=== PATIENT | female | born 1990 | race African-American/Black ===

== ENCOUNTER 2017-02-18 08:43 | Emergency (ER) | payer MEDICAID, SELFPAY ==
[2017-02-18] MEDS ORDERED: Lidocaine 1% w/Epinephrine 1:200K 30 ML VIAL ONE (09:29)
[2017-02-18] MEDS ORDERED: HYDROcodone/Acetaminophen 5/325 mg Tablet ONE (09:32)
== END 2017-02-18 10:05 | disposition home or self-care (01) ==
LOC: ERS 08:43
DX: L02.214 Cutaneous abscess of groin (principal); J45.909 Unspecified asthma, uncomplicated
CPT/HCPCS: 10061; 87070; 87205

== ENCOUNTER 2017-02-20 09:30 | Emergency (ER) | payer SELFPAY | END 2017-02-20 10:14 | disposition home or self-care (01) | LOC: ERS 09:30 | DX: Z48.817 Encounter for surgical aftercare following surgery on the skin and subcutaneous tissue (principal); J45.909 Unspecified asthma, uncomplicated; Z79.2 Long term (current) use of antibiotics; Z79.891 Long term (current) use of opiate analgesic | CPT/HCPCS: 99282 ==

== ENCOUNTER 2017-02-22 08:49 | Emergency (ER) | payer SELFPAY | END 2017-02-22 09:43 | disposition home or self-care (01) | LOC: ERS 08:49 | DX: Z48.817 Encounter for surgical aftercare following surgery on the skin and subcutaneous tissue (principal); Z48.01 Encounter for change or removal of surgical wound dressing; J45.909 Unspecified asthma, uncomplicated | CPT/HCPCS: 99282 ==

== ENCOUNTER 2017-02-24 08:33 | Emergency (ER) | payer SELFPAY | END 2017-02-24 09:17 | disposition home or self-care (01) | LOC: ERS 08:33 | DX: Z48.817 Encounter for surgical aftercare following surgery on the skin and subcutaneous tissue (principal); J45.909 Unspecified asthma, uncomplicated | CPT/HCPCS: 99282 ==

== ENCOUNTER 2018-02-16 10:16 | Emergency (ER) | payer SELFPAY | END 2018-02-16 10:39 | disposition home or self-care (01) | LOC: ERS 10:16 | DX: T16.2XXA Foreign body in left ear, initial encounter (principal); J45.909 Unspecified asthma, uncomplicated; Z79.899 Other long term (current) drug therapy | CPT/HCPCS: 69200 ==

== ENCOUNTER 2018-08-18 13:09 | Outpatient (CLI) | payer MEDICAID ==
--- NOTE | 2018-08-18 14:05 | ULT ---
FTransabdominal and transvaginal pelvic ultrasound utilizing grayscale, color Doppler and spectral du plex sonographic evaluation. DATE:: 08/18/2018 12:00 AM CLINICAL HISTORY: Menorrhagia. LMP: July 29, 2018 : No reported Postmenopausal since: Not relevant Study: Transabdominal transvaginal pelvic ultrasound Uterus: Orientation: anteverted Size: 8.8 x 4.1 x 6.1 cm Mass: None Cervix: Normal Endometrium: Normal Endometrial Thickness: 15 mm Ovaries: Size: Right ovary measures 2.7 x 4.2 x 3.1 cm. The left ovary measures 3.1 x 3.7 x 2.3 cm. Mass: None . Flow: There is normal vascular flow to the right and left ovary. Adnexa: mass: None Cul-de-sac: Small amount of free fluid IMPRESSION: No acute sonographic abnormality demonstrated. Nonspecific small amount of free fluid in the pelvis.
== END 2018-08-18 13:10 | disposition home or self-care (01) ==
LOC: BICULT 13:09
PROVIDERS: ATTEND Advanced Practice Midwife
DX: N92.0 Excessive and frequent menstruation with regular cycle (principal)
CPT/HCPCS: 76856

== ENCOUNTER 2021-03-21 20:24 | Emergency (ER) | payer MEDICAID ==
[2021-03-21] MEDS ORDERED: Ibuprofen 200 MG TAB ONE (21:26)
== END 2021-03-21 21:35 | disposition home or self-care (01) ==
LOC: ERS 20:24
DX: L72.0 Epidermal cyst (principal); J45.909 Unspecified asthma, uncomplicated
CPT/HCPCS: 99282

== ENCOUNTER 2021-11-11 15:55 | Outpatient (CLI) | payer MEDICAID | END 2021-11-11 15:56 | disposition home or self-care (01) | LOC: BICULT 15:55 | PROVIDERS: ATTEND Nurse Practitioner Women's Health | DX: R10.2 Pelvic and perineal pain (principal); N83.202 Unspecified ovarian cyst, left side; N83.9 Noninflammatory disorder of ovary, fallopian tube and broad ligament, unspecified | CPT/HCPCS: 76856 ==

== ENCOUNTER 2022-02-04 12:47 | Outpatient (CLI) | payer MEDICAID | END 2022-02-04 12:48 | disposition home or self-care (01) | LOC: ULT 12:47 | PROVIDERS: ATTEND Nurse Practitioner Women's Health | DX: Z87.42 Personal history of other diseases of the female genital tract (principal) | CPT/HCPCS: 76856 ==

== ENCOUNTER 2022-03-20 09:10 | Emergency (ER) | payer MEDICAID, SELFPAY | END 2022-03-20 10:47 | disposition home or self-care (01) | LOC: ERS 09:10 | DX: L02.31 Cutaneous abscess of buttock (principal); J45.909 Unspecified asthma, uncomplicated | CPT/HCPCS: 99282 ==

== ENCOUNTER 2022-10-27 11:27 | Emergency (ER) | payer MEDICAID, SELFPAY | END 2022-10-27 13:18 | disposition home or self-care (01) | LOC: ERS 11:27 | DX: S90.32XA Contusion of left foot, initial encounter (principal); W18.30XA Fall on same level, unspecified, initial encounter ==

== ENCOUNTER 2023-07-15 10:22 | Emergency (ER) | payer SELFPAY ==
[2023-07-15] MEDS ORDERED: Ketorolac Tromethamine 30 MG (1 mL) VIAL ONE (10:41)
[2023-07-15] MEDS ORDERED: Ipratropium/Albuterol 3 ML NEB ONE ×2 (10:41→11:32)
[2023-07-15] MEDS ORDERED: Dexamethasone 4 MG TAB ONE (10:56)
[2023-07-15 11:40] LABS: Influenza A by NAA Not Detected (NotDetected); Influenza B by NAA Not Detected (NotDetected); SARS-CoV-2 NAA Rapid Test Not Detected (NotDetected)
== END 2023-07-15 14:18 | disposition home or self-care (01) ==
LOC: ERS 10:22
DX: J15.9 Unspecified bacterial pneumonia (principal); J45.909 Unspecified asthma, uncomplicated; Z79.899 Other long term (current) drug therapy
CPT/HCPCS: 71045; 94640; 96372; J1885; J7620; J8540

== ENCOUNTER 2023-07-16 20:25 | Observation (INO) | payer SELFPAY ==
[2023-07-16] MEDS ORDERED: predniSONE 20 MG TAB ONE (20:55)
[2023-07-16] MEDS ORDERED: Ipratropium/Albuterol 3 ML NEB ONE ×2 (21:05→23:27)
[2023-07-16 21:22] LABS: #Eosinphils 0.1 thou/uL (0.0-0.7); #Monocytes 0.6 thou/uL (0.11-0.59); #Neutrophils 2.8 thou/uL (1.40-6.50); %Basophils 0.4 % (0.0-1.0); %Eosinophils 1.8 % (0.0-10.0); %Lymphocytes 35.1 % (21.0-51.0); %Monocytes 11.5 % (0.0-10.0); Hematocrit 33.5 % (36.0-47.0); Hemoglobin 11.3 g/dL (12.0-16.0); Mean Corpuscular HGB CONC 33.7 g/dL (32.0-36.0); Mean Corpuscular Hemoglobin 30.1 pg (27.0-31.0); Mean Corpuscular Volume 89.3 fl (78.0-98.0); Mean Platelet Volume 10.5 fL (7.4-10.4); Platelet Count 309 10x3/uL (130-400); RBC Distribution Width 13.8 % (11.5-14.5); Red Blood Cell (RBC) Count 3.75 mill/uL (4.20-5.40); White Blood Cell (WBC) Count 5.6 10x3/uL (4.8-10.8)
[2023-07-16 21:39] LABS: ALT (SGPT) 21 U/L (8-55); AST (SGOT) 19 U/L (5-34); Albumin 4.1 g/dL (3.5-5.0); Alkaline Phosphatase 51 U/L (40-110); Anion Gap 13 mmol/L (10-20); BUN (Urea Nitrogen) 10 mg/dL (7.0-18.7); Bilirubin, Total 0.2 mg/dL (0.2-1.2); Calc. Creatinine Clearance 0 mL/min (70-130); Calcium 8.7 mg/dL (7.8-10.44); Carbon Dioxide 22 mmol/L (22-29); Chloride 105 mmol/L (98-107); Estimated GFR 118; Globulin 3.1 g/dL (2.4-3.5); Glucose 94 mg/dL (70-105); Potassium 3.5 mmol/L (3.5-5.1); Protein, Total 7.2 g/dL (6.0-8.3); Sodium 136 mmol/L (136-145)
[2023-07-16 22:38] LABS: BHCG - Serum Negative (NEGATIVE); Pregs Control Background? CLEAR/WHITE (CLR/WHITE); Pregs Control Bar Appear? YES (CONTROL BAR)
[2023-07-16 22:50] LABS: Troponin I Less than 0.010 ng/mL (< 0.028)
[2023-07-16] MEDS ORDERED: Magnesium 2 GM/50 ML BAG (IN WATER) ONE (23:27)
[2023-07-17] MEDS ORDERED: Albuterol 2.5 MG (3 mL) NEB NEB PRN (00:05)
[2023-07-17] MEDS ORDERED: Azithromycin 500 MG VIAL ONE (00:09)
[2023-07-17] MEDS ORDERED: Sodium Chloride 0.9% 250 ML 250 ML ONE (00:09)
[2023-07-17] MEDS ORDERED: cefTRIAXone (ROCEPHIN) 2 GM VIAL ONE (00:09)
[2023-07-17] MEDS ORDERED: Sodium Chloride 0.9% 100 ML ONE (00:09)
[2023-07-17] MEDS ORDERED: Ondansetron PF 4 MG/2 ML Vial IVP PRN (00:15)
[2023-07-17] MEDS ORDERED: Ondansetron ODT 4 MG TAB SL PRN (00:15)
[2023-07-17] MEDS ORDERED: Acetaminophen 650 MG Suppository PR PRN (00:20)
[2023-07-17] MEDS ORDERED: Ipratropium/Albuterol 3 ML NEB NEB PRN (00:28)
[2023-07-17] MEDS: Ipratropium/Albuterol 3 ML NEB NEB SCH (02:06)
[2023-07-17 02:42] VITALS: BMI 41.9
[2023-07-17] MEDS: Acetaminophen 325 MG TAB PO PRN (03:07)
[2023-07-17] MEDS: HYDROcodone/Acetaminophen 10/325 mg Tablet PO PRN (03:41)
[2023-07-17 04:44] LABS: #Monocytes 0.2 thou/uL (0.11-0.59); #Neutrophils 4.3 thou/uL (1.40-6.50); %Neutrophils 75.8 % (42.0-75.0); Hematocrit 34.7 % (36.0-47.0); Hemoglobin 11.5 g/dL (12.0-16.0); Mean Corpuscular HGB CONC 33.1 g/dL (32.0-36.0); Mean Corpuscular Hemoglobin 30.2 pg (27.0-31.0); Mean Corpuscular Volume 91.1 fl (78.0-98.0); Mean Platelet Volume 10.6 fL (7.4-10.4); Platelet Count 327 10x3/uL (130-400); RBC Distribution Width 13.8 % (11.5-14.5); Red Blood Cell (RBC) Count 3.81 mill/uL (4.20-5.40); White Blood Cell (WBC) Count 5.6 10x3/uL (4.8-10.8)
[2023-07-17 05:18] LABS: Anion Gap 16 mmol/L (10-20); BUN (Urea Nitrogen) 9 mg/dL (7.0-18.7); Calc. Creatinine Clearance 218 mL/min (70-130); Calcium 8.8 mg/dL (7.8-10.44); Carbon Dioxide 20 mmol/L (22-29); Chloride 105 mmol/L (98-107); Estimated GFR 118; Glucose 122 mg/dL (70-105); Iron 50 ug/dL (50-170); Iron Binding Capacity, Total 330 mcg/dL (265-497); Potassium 4.5 mmol/L (3.5-5.1); Sodium 136 mmol/L (136-145)
[2023-07-17 05:19] LABS: Iron 48 ug/dL (50-170); Iron Binding Capacity, Total 339 mcg/dL (265-497)
[2023-07-17] MEDS: Magnesium 2 GM/50 ML(in water) 2 GM in Premix 1 BAG IVPB SCH (07:16)
[2023-07-17] MEDS: methylPREDNISolone Sod Succ/PF 125 MG/2 ML VIAL IVP SCH (07:16)
[2023-07-17] MEDS: methylPREDNISolone Sod Succ 40 MG VIAL IVP SCH (09:17)
[2023-07-17 12:56] VITALS: BP 133/82; TEMP 98.3
[2023-07-17] MEDS ORDERED: Azithromycin 500 MG in Sodium Chloride 0.9% 250 ML 250 ML IVPB SCH (21:00)
[2023-07-17] MEDS ORDERED: cefTRIAXone\\ROCEPHIN 1 GM in Sodium Chloride 0.9% 100 ML IVPB SCH (23:59)
== END 2023-07-17 12:42 | disposition home or self-care (01) ==
LOC: ERS 20:25 → T4-B 07-17 00:02
PROVIDERS: ADMIT Student in an Organized Health Care Education/Training Program; ATTEND Internal Medicine
PROC: B246ZZZ Ultrasonography of Right and Left Heart (ICD-10-PCS; principal; 2023-07-17)
DX: J18.9 Pneumonia, unspecified organism (principal); J45.901 Unspecified asthma with (acute) exacerbation; D64.9 Anemia, unspecified; R01.1 Cardiac murmur, unspecified; I08.1 Rheumatic disorders of both mitral and tricuspid valves; E66.9 Obesity, unspecified; Z68.41 Body mass index [BMI] 40.0-44.9, adult; Z91.013 Allergy to seafood
CPT/HCPCS: 36415; 71275; 80048; 80053; 82728; 83540; 83550; 83605; 83880; 84484; 84703; 85025; 87040; 93005; 93306; 94640; 96375; G0378; J0456; J0696; J2920; J3475; J3490; J7050; J7512; J7620

== ENCOUNTER 2023-10-04 08:22 | Emergency (ER) | payer SELFPAY | END 2023-10-04 09:09 | disposition left against medical advice (07) | LOC: ERS 08:22 | DX: Z53.21 Procedure and treatment not carried out due to patient leaving prior to being seen by health care provider (principal) ==